=== PATIENT | female | born 1985 | race Caucasian/White ===

== ENCOUNTER 2019-06-25 10:27 | Emergency (ER) | payer SELFPAY ==
--- NOTE | 2019-06-25 11:02 | EDM.PDOC ---
ED HPI GENERAL MEDICAL PROBLEM - General Chief Complaint: General Stated Complaint: HEAD PAIN Time Seen by Provider: 06/25/19 11:01 Source of Information: Reports: Patient History Limitations: Reports: No Limitations - History of Present Illness INITIAL COMMENTS - FREE TEXT/NARRATIVE: HISTORY AND PHYSICAL: History of present illness: Patient is a 34-year-old female who presents to the emergency room today with complaints of right jaw pain that radiates into her ear and down her neck. She states initially she thought she had some type of dental abscess as she had pain below the site where she has a known cracked tooth. She states she's had this cracked tooth for about one year and hadn't previously caused any problems like this. Over the past 24 hours the pain is now radiating into her ear and into her neck which she states has been hard to open her mouth wide. States she has had throat pain and is concerned she may have strep throat. Patient denies any fever, chills, headache, change in vision, syncope or near syncope. Denies any chest pain, back pain, shortness of breath or cough. Denies any abdominal pain, nausea, vomiting, diarrhea, constipation or dysuria. Has not noted any blood in urine or stool. Patient has been eating and drinking appropriately. Review of systems: As per history of present illness and below otherwise all systems reviewed and negative. Past medical history: As per history of present illness and as reviewed below otherwise noncontributory. Surgical history: As per history of present illness and as reviewed below otherwise noncontributory. Social history: See social history for further information Family history: As per history of present illness and as reviewed below otherwise noncontributory. Physical exam: General: Well-developed and well-nourished 34-year-old female. Alert and oriented. Nontoxic appearing and in no acute distress. HEENT: Atraumatic, normocephalic, pupils equal and reactive bilaterally, negative for conjunctival pallor or scleral icterus, mucous membranes moist, right posterior gumline is erythematous with tenderness to palpation, TMs normal bilaterally, throat erythematous without exudate, neck supple, nontender , trachea midline. No drooling or trismus noted. No meningeal signs. No hot potato voice noted. Lungs: Clear to auscultation, breath sounds equal bilaterally, chest nontender. Heart: S1S2, regular rate and rhythm without overt murmur Abdomen: Soft, nondistended, nontender. Skin: Intact, warm, dry. No lesions or rashes noted. Extremities: Atraumatic, moves all extremities per self without difficulty or deficits, negative for cords or calf pain. Neurovascular unremarkable. Neuro: Awake, alert, oriented. Cranial nerves II through XII unremarkable. Cerebellum unremarkable. Motor and sensory unremarkable throughout. Exam nonfocal. Notes: Supportive care measures were reviewed and discussed. Voices understanding and is agreeable to plan of care. Denies any further questions or concerns at this time. Diagnostics: None Therapeutics: None Prescription: Augmentin Impression: Dentalgia r/o Dental abscess Pharyngitis Plan: 1. Soft foods until your pain has improved. Drink plenty of fluids 2. Take your medications as prescribed. 3. Follow-up with your primary care provider as we discussed. Return to the ED as needed and as discussed. Definitive disposition and diagnosis as appropriate pending reevaluation and review of above. Right Ear/Jaw Pain Score (Numeric/FACES): 10 - Related Data Allergies Allergy/AdvReac Type Severity Reaction Status Date / Time No Known Allergies Allergy Verified 06/25/19 10:58 Home Meds: Home Meds Acetaminophen/HYDROcodone [[place] 325-5 MG] 1 dose PO Q4H #20 tablet 06/25/19 [Rx ] Amoxicillin/Clavulanate K [Augmentin 875-125 MG] 1 tab PO BID 10 Days #20 tablet 06/25/19 [Rx] methylPREDNISolone [Medrol] 1 dose PO DAILY 6 Days #1 dospk 06/25/19 [Rx] ED ROS GENERAL - Review of Systems Review Of Systems: Comprehensive ROS is negative, except as noted in HPI. ED EXAM, GENERAL - Physical Exam Exam: See Below (See dictation) Course - Vital Signs Last Recorded V/S: Last Vital Signs Temp 97.9 F 06/25/19 10:58 Pulse 65 06/25/19 11:19 Resp 16 06/25/19 11:19 BP 140/95 H 06/25/19 11:19 Pulse Ox 98 06/25/19 11:19 Departure - Departure Time of Disposition: 19:05 Disposition: Home, Self-Care 01 Clinical Impression: Dental abscess, Pharyngitis - Discharge Information Prescriptions: Acetaminophen/HYDROcodone [Be[place]ont 325-5 MG] 1 dose PO Q4H #20 tablet Amoxicillin/Clavulanate K [Augmentin 875-125 MG] 1 tab PO BID 10 Days #20 tablet methylPREDNISolone [Medrol] 1 dose PO DAILY 6 Days #1 dospk Instructions: Pharyngitis, [id number] Referrals: PCP,None [Primary Care Provider] - Forms: ED Department Discharge Additional Instructions: The following information is given to patients seen in the emergency department who are being discharged to home. This information is to outline your options for follow-up care. We provide all patients seen in our emergency department with a follow-up referral. The need for follow-up, as well as the timing and circumstances, are variable depending upon the specifics of your emergency department visit. If you don't have a primary care physician on staff, we will provide you with a referral. We always advise you to contact your personal physician following an emergency department visit to inform them of the circumstance of the visit and for follow-up with them and/or the need for any referrals to a consulting specialist. The emergency department will also refer you to a specialist when appropriate. This referral assures that you have the opportunity for follow-up care with a specialist. All of these measure are taken in an effort to provide you with optimal care, which includes your follow-up. Under all circumstances we always encourage you to contact your private physician who remains a resource for coordinating your care. When calling for follow-up care, please make the office aware that this follow-up is from your recent emergency room visit. If for any reason you are refused follow-up, please contact the [facility] Emergency Department at and asked to speak to the emergency department charge nurse. [facility] [address] [place] [id number] [address] 1. Soft foods until your pain has improved. Drink plenty of fluids 2. Take your medications as prescribed. 3. Follow-up with your primary care provider as we discussed. Return to the ED as needed and as discussed.
== END 2019-06-25 11:22 | disposition home or self-care (01) ==
LOC: MW.ED 10:27
DX: K04.7 Periapical abscess without sinus (principal); J02.9 Acute pharyngitis, unspecified
CPT/HCPCS: 99282; 99283

== ENCOUNTER 2020-05-14 09:22 | Emergency (ER) | payer BC ==
[2020-05-14] MEDS ORDERED: diphenhydrAMINE 50 MG/ML SDV IVPUSH ONE (09:57)
[2020-05-14] MEDS ORDERED: Prochlorperazine 10 MG/2 ML SDV IVPUSH ONE (09:59)
[2020-05-14] MEDS ORDERED: HYDROmorphone 2 MG/ML Syringe IVPUSH ONE (09:59)
--- NOTE | 2020-05-14 10:11 | EDM.PDOC ---
ED [facility] GENERAL MEDICAL PROBLEM - General Chief Complaint: Abdominal Pain Stated Complaint: ABDOMINAL PAIN Time Seen by Provider: 05/14/20 09:22 - History of Present Illness INITIAL COMMENTS - FREE TEXT/NARRATIVE: HISTORY AND PHYSICAL: History of present illness: This 35-year-old female with a past medical history of cholecystectomy, BMI greater than 40, polycystic ovarian syndrome, and tubal ligation presents to the emergency department with second day of abdominal symptoms. She had some anorexia and generalized abdominal pain that is now focal to the right lower quadrant with radiation to the right upper quadrant. No significant diarrhea but did have one episode of loose stool. Denies any vaginal or urinary symptoms. States that the right lower quadrant pain is severe. Denies any fever. Comes in waves of severity with a constant baseline moderate pain. Denies any other associated signs or symptoms. No other modifying, aggravating or alleviating factors. Review of systems: A 10-point review of systems, other than pertinent positives and negatives as stated per HPI, is otherwise negative. Past medical history: As per history of present illness and as reviewed below otherwise noncontributory. Surgical history: As per history of present illness and as reviewed below otherwise noncontributory. Social history: No reported history of drug or alcohol abuse. Family history: As per history of present illness and as reviewed below otherwise noncontributory. Physical exam: VITAL SIGNS: Reviewed. GENERAL: Appears to be in acute pain. Otherwise nontoxic appearing. HEAD: No signs of head trauma. EYES: Pupils are equal. Extraocular motions intact. EARS: Hearing grossly intact. MOUTH: Oropharynx is normal. NECK: No adenopathy, no JVD. CHEST: Chest with clear breath sounds bilaterally. No wheezes, rales, or rhonchi. CARDIAC: Regular rate and rhythm. Normal S1 and S2, without murmurs, gallops, or rubs. VASCULAR: Peripheral pulses normal and equal in all extremities. ABDOMEN: Soft, significant tenderness in the right lower quadrant. No significant tenderness in the right upper quadrant. Body habitus somewhat limits focalization of exam. I do not note any masses or pulsatile areas. No distention. MUSCULOSKELETAL: Good range of motion of all major joints. Extremities without clubbing, cyanosis or edema. NEUROLOGIC EXAM: Alert and oriented x 3. No focal sensory or motor deficits. Speech normal. Follows commands. PSYCHIATRIC: Mood normal. SKIN: No rash or lesions. Initial Differential Diagnosis & Plan: Appendicitis, ovarian torsion, bowel obstruction, epiploic appendagitis, mesenteric adenitis, diverticulitis, colitis, enteritis Given age, previous surgical history I feel the biliary disease is unlikely. Most likely appendicitis versus small bowel obstruction. We will obtain a CT of the abdomen pelvis with IV contrast to rule out underlying disease. The patient sometimes vomits after getting contrast so we will give Benadryl to prevent histamine release. Definitive disposition and diagnosis as appropriate pending reevaluation and review of above. Right abdominal Pain Score (Numeric/FACES): 8 - Related Data Allergies Allergy/AdvReac Type Severity Reaction Status Date / Time No Known Allergies Allergy Verified 05/14/20 09:41 Home Meds: Home Meds Dicyclomine [Bentyl] 20 mg PO TID #12 tablet 05/14/20 [Rx] Levothyroxine 150 mcg PO DAILY 05/14/20 [History] Promethazine [Phenergan] 25 mg PO Q6H PRN 3 Days #12 tab 05/14/20 [Rx] Psyllium Husk (With Sugar) [Metamucil Powder] 2 tbsp PO TID 14 Days #1042 powder 05/14/20 [Rx] Past Medical History HEENT History: Reports: Impaired Vision Cardiovascular History: Reports: Cardiomyopathy, Pulmonary Hypertension Gastrointestinal History: Reports: None Neurological History: Reports: Migraines Psychiatric History: Reports: Anxiety, Depression Other Endocrine/Metabolic History: [place] - Infectious Disease History Infectious Disease History: Reports: None - Past Surgical History HEENT Surgical History: Reports: None Cardiovascular Surgical History: Reports: None GI Surgical History: Reports: Cholecystectomy Female Surgical History: Reports: Tubal Ligation Social & Family History - Family History Family Medical History: Noncontributory - Tobacco Use Tobacco Use Status *Q: Never Tobacco User - Caffeine Use Caffeine Use: Reports: Coffee, Soda - Recreational Drug Use Recreational Drug Use: No ED ROS GENERAL - Review of Systems Review Of Systems: See Below (noted) ED EXAM, GI/ABD - Physical Exam Exam: See Below (noted) ED ABDOMINAL/GI PROCEDURES - Additional/Other Procedure(s) Procedure(s) (Free Text): Procedure Note: Physician placed IV Due to difficult or critical IV access situation I have placed an IV for treatment and circulatory access. Location: Right antecubital fossa, 20g Complications: None PROCEDURE: Ultrasound guidance of needle placement Indication: Guidance of needle for procedure Performed and interpreted by myself Findings: 1. Targeted structure identified 2. Distance from the skin noted 3. Surrounding vascular and nerve structures noted Interpretation: Ultrasound guidance of needle to increase safety and accuracy of procedure. Signed by Sammy Betancourt M.D. Course - Vital Signs Last Recorded V/S: Last Vital Signs Temp 96.8 F L 05/14/20 09:42 Pulse 62 05/14/20 11:53 Resp 17 05/14/20 09:42 BP 163/96 H 05/14/20 11:53 Pulse Ox 97 05/14/20 11:08 - Orders/Labs/Meds Labs: Laboratory Tests 05/14/20 05/14/20 05/14/20 Range/Units 09:32 10:55 10:55 WBC 8.88 (4.0-11.0) K/uL RBC 3.90 L (4.30-5.90) M/uL Hgb 12.2 (12.0-16.0) g/dL Hct 37.3 (36.0-46.0) % MCV 95.6 (80.0-98.0) fL MCH 31.3 (27.0-32.0) pg MCHC 32.7 (31.0-37.0) g/dL RDW Std Deviation 53.9 (28.0-62.0) fl RDW Coeff of Allie 15 (11.0-15.0) % Plt Count 426 H (150-400) K/uL MPV 8.90 (7.40-12.00) fL Neut % (Auto) 67.7 (48.0-80.0) % Lymph % (Auto) 23.3 (16.0-40.0) % Ashley % (Auto) 5.5 (0.0-15.0) % Eos % (Auto) 3.3 (0.0-7.0) % Baso % (Auto) 0.2 (0.0-1.5) % Neut # (Auto) 6.0 H (1.4-5.7) K/uL Lymph # (Auto) 2.1 (0.6-2.4) K/uL Ashley # (Auto) 0.5 (0.0-0.8) K/uL Eos # (Auto) 0.3 (0.0-0.7) K/uL Baso # (Auto) 0.0 (0.0-0.1) K/uL Nucleated RBC % 0.0 /100WBC Nucleated RBCs # 0 K/uL Sodium 139 (136-145) mmol/L Potassium 3.3 L (3.5-5.1) mmol/L Chloride 103 (98-107) mmol/L Carbon Dioxide 25.4 (21.0-32.0) mmol/L BUN 6 L (7.0-18.0) mg/dL Creatinine 0.9 (0.6-1.0) mg/dL Est Cr Clr Drug Dosing 65.84 mL/min Estimated GFR (MDRD) > 60.0 ml/min Glucose 95 (74-106) mg/dL Calcium 8.8 (8.5-10.1) mg/dL Total Bilirubin 0.6 (0.2-1.0) mg/dL AST 21 (15-37) IU/L ALT 24 (14-63) IU/L Alkaline Phosphatase 64 (46-116) U/L Total Protein 7.6 (6.4-8.2) g/dL Albumin 3.8 (3.4-5.0) g/dL Globulin 3.8 (2.6-4.0) g/dL Albumin/Globulin Ratio 1.0 (0.9-1.6) Lipase 111 (73-393) U/L HCG, Quant 1.0 mIU/mL Urine Color YELLOW Urine Appearance CLEAR Urine pH 7.0 (5.0-8.0) Ur Specific [place] 1.015 (1.001-1.035) Urine Protein NEGATIVE (NEGATIVE) mg/dL Urine Glucose (UA) NEGATIVE (NEGATIVE) mg/dL Urine Ketones NEGATIVE (NEGATIVE) mg/dL Urine Occult Blood SMALL H (NEGATIVE) Urine Nitrite NEGATIVE (NEGATIVE) Urine Bilirubin NEGATIVE (NEGATIVE) Urine Urobilinogen 0.2 (<2.0) EU/dL Ur Leukocyte Esterase NEGATIVE (NEGATIVE) Urine RBC 0-2 (0-2/HPF) Urine WBC 0-2 (0-5/HPF) Ur Epithelial Cells OCCASIONAL (NONE-FEW) Urine Bacteria FEW (NEGATIVE) Urine Mucus LIGHT (NONE-MOD) Meds: Medications Discontinued Medications Generic Name Dose Route Start Last Admin Trade Name Freq PRN Reason Stop Dose Admin Diphenhydramine HCl 50 mg 05/14/20 09:57 05/14/20 11:01 Benadryl IVPUSH 05/14/20 09:58 50 mg ONETIME ONE Administration Hydromorphone HCl 1 mg 05/14/20 09:59 05/14/20 11:01 Dilaudid IVPUSH 05/14/20 10:00 1 mg ONETIME ONE Administration Sodium Chloride 1,000 mls @ 999 mls/hr 05/14/20 10:58 05/14/20 11:01 Normal Saline IV 05/14/20 11:58 999 mls/hr .Bolus ONE Administration Prochlorperazine Edisylate 10 mg 05/14/20 09:59 05/14/20 11:01 Compazine IVPUSH 05/14/20 10:00 10 mg ONETIME ONE Administration Departure - Departure Time of Disposition: 12:47 Disposition: Home, Self-Care 01 Clinical Impression: Abdominal pain - Discharge Information *PRESCRIPTION DRUG MONITORING PROGRAM REVIEWED*: Not Applicable *COPY OF PRESCRIPTION DRUG MONITORING REPORT IN PATIENT MISHEL: Not Applicable Instructions: Abdominal Pain, Adult, [id number] Referrals: PCP,None [Primary Care Provider] - Forms: ED Department Discharge Additional Instructions: The following information is given to patients seen in the emergency department who are being discharged to home. This information is to outline your options for follow-up care. We provide all patients seen in our emergency department with a follow-up referral. The need for follow-up, as well as the timing and circumstances, are variable depending upon the specifics of your emergency department visit. If you don't have a primary care physician on staff, we will provide you with a referral. We always advise you to contact your personal physician following an emergency department visit to inform them of the circumstance of the visit and for follow-up with them and/or the need for any referrals to a consulting specialist. The emergency department will also refer you to a specialist when appropriate. This referral assures that you have the opportunity for follow-up care with a specialist. All of these measure are taken in an effort to provide you with optimal care, which includes your follow-up. Thank you for coming to the [facility] urgency department for your care today. It was Dr. Betancourt's pleasure to take care of you. [facility] - Primary Care [address] [place] [address] [facility] [address] [place] [address] of your abdomen pelvis and your labs are essentially normal today. There is no clear etiology for your abdominal pain. At times abdominal pain can be a very difficult to diagnose. There are multiple causes that range from serious surgical entities like appendicitis to less serious entities like constipation. The cause of your pain today is unclear to me. You do not have a fever, tachycardia, elevation of your white blood count, or other abnormalities that suggest a serious underlying condition. We will need to watch you and have you return if you have worsening. Please follow-up with your primary care doctor and consider following up with your [facility]BULANCE ATTENDANT physician. Sometimes people with polycystic ovarian syndrome have torsion of the ovary that is intermittent and difficult to find on the initial visit. Under all circumstances we always encourage you to contact your private physician who remains a resource for coordinating your care. When calling for follow-up care, please make the office aware that this follow-up is from your recent emergency room visit. If for any reason you are refused follow-up, please contact the [facility] Emergency Department at and asked to speak to the emergency department charge nurse. Sepsis Event Note (ED) - Evaluation Sepsis Screening Result: No Definite Risk - Focused Exam Vital Signs: Vital Signs Temp Pulse Resp BP Pulse Ox 05/14/20 11:53 62 163/96 H 05/14/20 11:08 61 135/70 97 05/14/20 09:42 96.8 F L 59 L 17 155/88 H 99
[2020-05-14] MEDS ORDERED: Sodium Chloride 0.9% 1,000 ML IV ONE (10:58)
[2020-05-14 11:50] LABS: BLOOD UREA NITROGEN,BUN 6 mg/dL (7.0-18.0); CARBON DIOXIDE,CO2 25.4 mmol/L (21.0-32.0); CHLORIDE,CL 103 mmol/L (98-107); GLUCOSE RANDOM 95 mg/dL (74-106); LIPASE 111 U/L (73-393); POTASSIUM,K 3.3 mmol/L (3.5-5.1); SODIUM,NA 139 mmol/L (136-145)
--- NOTE | 2020-05-14 12:39 | CT ---
INDICATION: Lower abdominal pain COMPARISON: None TECHNIQUE: CT examination of the abdomen and pelvis was performed following the uneventful intravenous administration of 100 cc of Isovue 3 7. Thin section axial images were obtained from the lung bases through the pubic symphysis. Oral contrast was not administered. Please note that all CT scans at this facility use dose modulation, iterative reconstruction, and/or weight-based dosing when appropriate to reduce radiation dose to as low as reasonably achievable. FINDINGS: LUNG BASES: The lung bases as visualized appear normal.The heart size is normal at the lung bases. LIVER/BILIARY SYSTEM:There is hepatic steatosis. There is also focal fat above the post form ligament. No mass or biliary ductal dilatation.Surgically absent gallbladder ADRENALS: Normal KIDNEYS, URETERS and BLADDER:Kidneys normal in size. There is several tiny low-density lesions that are too small to characterize but likely benign. No visible obstructive uropathy. Bladder appears normal. SPLEEN:Normal appearance. PANCREAS: Appears normal. RETROPERITONEUM and MESENTERY: There is no mass, adenopathy or aortic aneurysm. GASTROINTESTINAL SYSTEM: There is no evidence of diverticulitis, colitis, mechanical obstruction, or appendicitis. The small bowel as visualized appears normal. PELVIS: No mass, adenopathy or free fluid. OSSEOUS STRUCTURES and ABDOMINAL WALL: There is an age-appropriate appearance of the osseous structures.No significant abdominal wall defect. OTHER: No free fluid or free air. IMPRESSION: No visible etiology for abdominal pain. Please note that all CT scans at this facility use dose modulation, iterative reconstruction, and/or weight-based dosing when appropriate to reduce radiation dose to as low as reasonably achievable. Dictated by Farhan Abebe MD @ May 14 2020 12:30PM Signed by Dr. Farhan Abebe @ May 14 2020 12:38PM
== END 2020-05-14 13:45 | disposition home or self-care (01) ==
LOC: MW.ED 09:22
DX: R10.84 Generalized abdominal pain (principal); I10 Essential (primary) hypertension
CPT/HCPCS: 36415; 74177; 80053; 81001; 83690; 84702; 85025; 96374; 96375; 99284; J0780; J1170; J1200; J7030; 99283

== ENCOUNTER 2021-09-10 18:21 | Emergency (ER) | payer OTHER ==
[2021-09-10] MEDS ORDERED: Ketorolac 30 MG/ML SDV IM ONE (19:45)
[2021-09-10] MEDS ORDERED: Lidocaine 5% 700 MG Patch TRDERM ONE (19:45)
== END 2021-09-10 20:22 | disposition home or self-care (01) ==
LOC: MW.ED 18:21
DX: S16.1XXA Strain of muscle, fascia and tendon at neck level, initial encounter (principal); E03.9 Hypothyroidism, unspecified; I10 Essential (primary) hypertension; Z79.899 Other long term (current) drug therapy
CPT/HCPCS: 96372; 99283; A9270-GY; J1885

== ENCOUNTER 2021-09-24 19:44 | Emergency (ER) | payer OTHER | END 2021-09-25 00:30 | disposition left against medical advice (07) | LOC: MW.ED 19:44 | DX: Z53.21 Procedure and treatment not carried out due to patient leaving prior to being seen by health care provider (principal) ==

== ENCOUNTER 2021-12-08 15:52 | Emergency (ER) | payer OTHER ==
[2021-12-08] MEDS ORDERED: Sodium Chloride 0.9% 2.5 ML Syringe FLUSH PRN (16:04)
[2021-12-08] MEDS ORDERED: Sodium Chloride 0.9% 1,000 ML IV ONE (16:04)
[2021-12-08] MEDS ORDERED: Sodium Chloride 0.9% 10 ML Syringe FLUSH PRN (16:04)
[2021-12-08 17:11] LABS: BLOOD UREA NITROGEN,BUN 12 mg/dL (7.0-18.0); CARBON DIOXIDE,CO2 15.3 mmol/L (21.0-32.0); CHLORIDE,CL 96 mmol/L (98-107); GLUCOSE RANDOM 66 mg/dL (74-106); POTASSIUM,K 4.3 mmol/L (3.5-5.1); SODIUM,NA 135 mmol/L (136-145)
[2021-12-08] MEDS ORDERED: Ondansetron 4 MG/2 ML SDV IVPUSH ONE (17:31)
[2021-12-08] MEDS ORDERED: diphenhydrAMINE 50 MG/ML SDV IVPUSH ONE (17:31)
[2021-12-08] MEDS ORDERED: Aspirin 81 MG Tab.Chew PO ONE (18:38)
[2021-12-08] MEDS ORDERED: Iopamidol 755 MG/ML 500 ML Multipack Bottle IVPUSH ONE (19:47)
== END 2021-12-08 20:26 ==
LOC: MW.ED 15:52
DX: I21.4 Non-ST elevation (NSTEMI) myocardial infarction (principal); U07.1 COVID-19; R77.8 Other specified abnormalities of plasma proteins; R79.89 Other specified abnormal findings of blood chemistry; I11.9 Hypertensive heart disease without heart failure; E03.9 Hypothyroidism, unspecified; Z91.041 Radiographic dye allergy status; Z79.899 Other long term (current) drug therapy
CPT/HCPCS: 36415; 71045; 71275; 80053; 80305; 81003; 83880; 84443; 84484; 84703; 85025; 85379; 87635; 93005; 96361; 96374; 96375; 99285; A9270; J1200; J2405; J3490; J7030; Q9967; 93010; U0002

== ENCOUNTER 2022-09-24 19:38 | Emergency (ER) | payer OTHER | END 2022-09-24 21:08 | disposition left against medical advice (07) | LOC: MW.ED 19:38 | DX: Z53.21 Procedure and treatment not carried out due to patient leaving prior to being seen by health care provider (principal) ==

== ENCOUNTER 2024-02-22 11:17 | Emergency (ER) | payer OTHER ==
[2024-02-22] MEDS: Sodium Chloride 0.9% 1,000 ML IV ONE (12:09)
[2024-02-22] MEDS: Ketorolac 30 MG/ML SDV IVPUSH ONE (12:09)
[2024-02-22] MEDS: Sodium Chloride 0.9% 10 ML Syringe FLUSH PRN (12:10)
[2024-02-22] MEDS: Sodium Chloride 0.9% 2.5 ML Syringe FLUSH PRN (12:10)
[2024-02-22 12:14] LABS: BASOPHILS ABSOLUTE AUTO 0.02 K/uL (0.00-0.20); BASOPHILS PERCENT AUTO 0.3 % (0.0-1.0); EOSINOPHILS PERCENT AUTO 3.2 % (0.0-6.0); HEMATOCRIT 41.5 % (37.0-47.0); HEMOGLOBIN 13.9 g/dL (12.0-16.0); IMMATURE GRAN ABSOLUTE AUTO 0.01 K/uL (0.00-0.05); IMMATURE GRAN PERCENT AUTO 0.2 % (0.0-0.4); LYMPHOCYTES ABSOLUTE AUTO 1.33 K/uL (1.00-4.80); LYMPHOCYTES PERCENT AUTO 21.4 % (24.0-44.0); MEAN CORPUSCULAR HEMOGLOBIN 29.3 pg (28.0-32.0); MEAN CORPUSCULAR HGB CONC 33.5 g/dL (32.0-36.0); MEAN CORPUSCULAR VOLUME 87.6 fL (83.0-99.0); MEAN PLATELET VOLUME 8.6 fL (9.4-12.3); MONOCYTES ABSOLUTE AUTO 0.59 K/uL (0.00-0.80); MONOCYTES PERCENT AUTO 9.5 % (0.0-8.0); NEUTROPHILS ABSOLUTE AUTO 4.06 K/uL (1.80-7.70); NEUTROPHILS PERCENT AUTO 65.4 % (41.0-71.0); PLATELET COUNT,PLT 391 K/uL (150-400); RED BLOOD CELL COUNT 4.74 M/uL (4.10-5.30); WHITE BLOOD CELL COUNT,WBC 6.21 K/uL (3.9-11.3)
[2024-02-22 12:56] LABS: A/G RATIO 0.9 (0.9-1.6); ALBUMIN 4.1 g/dL (3.4-5.0); CALCIUM 9.5 mg/dL (8.5-10.1); CARBON DIOXIDE,CO2 27.9 mmol/L (21.0-32.0); EST CRCL DRUG DOSING (CG) 60.33 mL/min; POTASSIUM,K 3.3 mmol/L (3.5-5.1); PROTEIN TOTAL,TP 8.7 g/dL (6.4-8.2)
[2024-02-22] MEDS: Labetalol 100 MG/20 ML MDV IVPUSH ONE (15:14)
[2024-02-22] MEDS: Ondansetron 4 MG/2 ML SDV IVPUSH ONE (16:09)
[2024-02-22] MEDS: diphenhydrAMINE 50 MG/ML SDV IVPUSH ONE (16:09)
[2024-02-22] MEDS: Iopamidol 755 MG/ML 500 ML Multipack Bottle IVPUSH STA (16:34)
[2024-02-22] MEDS: Morphine 2 MG/ML SYRINGE IVPUSH ONE (17:02)
== END 2024-02-22 17:19 ==
LOC: MW.ED 11:17
DX: I16.1 Hypertensive emergency (principal); I10 Essential (primary) hypertension; R79.89 Other specified abnormal findings of blood chemistry; E03.9 Hypothyroidism, unspecified; Z75.8 Other problems related to medical facilities and other health care; Z91.041 Radiographic dye allergy status; Z79.890 Hormone replacement therapy; Z79.899 Other long term (current) drug therapy; Z90.49 Acquired absence of other specified parts of digestive tract
CPT/HCPCS: 36415; 71045; 71275; 80053; 83735; 84484; 84703; 85025; 85379; 96361; 96374; 96375; 99285; J1200; J1885; J1921; J2270; J2405; J3490; J7030; Q9967; 93010